=== PATIENT | female | born 1970 | race Caucasian/White ===

== ENCOUNTER → 2016-09-27 | Outpatient (CLI) | payer BC ==
[~2016-09-27] MED LIST: FLORINEF ACETA0.1 MG PO; LEVEMIR100 U/ML SC; LEVOXYL0.025 MG PO; LISINOPRIL10 MG PO; METFORMIN500 MG PO; NORCO 325 MG-7.1 TAB PO; NOVOLOG FLEX100 U/ML SC; PAMELOR 10MG10 MG PO; PROTONIX20 MG PO; ZOCOR 10MG10 MG PO
== END ==
LOC: MC.RAD 09:32
DX: Z12.31 Encounter for screening mammogram for malignant neoplasm of breast (principal)

== ENCOUNTER → 2017-11-22 | Outpatient (CLI) | payer BC | LOC: MC.RAD 08:31 | DX: Z12.31 Encounter for screening mammogram for malignant neoplasm of breast (principal) ==

== ENCOUNTER → 2018-10-24 | Outpatient (CLI) | payer BC | LOC: COL.RAD 10-19 10:30 | DX: R10.2 Pelvic and perineal pain (principal); Z90.710 Acquired absence of both cervix and uterus ==

== ENCOUNTER → 2018-11-23 | Outpatient (CLI) | payer BC | LOC: MC.RAD 09:23 | DX: Z12.31 Encounter for screening mammogram for malignant neoplasm of breast (principal) ==

== ENCOUNTER 2019-10-29 12:43 | Emergency (ER) | payer BC ==
[~2019-10-29] VITALS: Ht 162.6 cm; Wt 100.0 kg
[2019-10-29 13:28] VITALS: BP 128/80; TEMP 98.5
[2019-10-29] MEDS ORDERED: COZAAR 50MG50 MG/TAB PO (14:43)
[2019-10-29] MEDS ORDERED: DOXYCYCLINE 10100 MG PO ×3 (15:11→16:30)
[2019-10-29 15:30] VITALS: PULSE 81
== END 2019-10-29 15:30 | disposition home or self-care (01) ==
LOC: COL.ER 12:43
DX: L03.116 Cellulitis of left lower limb (principal); E11.9 Type 2 diabetes mellitus without complications; E03.9 Hypothyroidism, unspecified; K21.9 Gastro-esophageal reflux disease without esophagitis; I10 Essential (primary) hypertension; Z79.890 Hormone replacement therapy; Z79.4 Long term (current) use of insulin

== ENCOUNTER → 2019-11-30 | Outpatient (CLI) | payer BC ==
[~2019-11-30] MED LIST changes: +COZAAR 50MG50 MG/TAB PO; +DOXYCYCLINE 10100 MG PO
== END ==
LOC: MC.RAD 09:28
DX: Z12.31 Encounter for screening mammogram for malignant neoplasm of breast (principal)

== ENCOUNTER → 2021-03-16 | Outpatient (CLI) | payer OTHER | LOC: MC.RAD 08:17 | DX: Z12.31 Encounter for screening mammogram for malignant neoplasm of breast (principal) ==

== ENCOUNTER → 2022-05-06 | Outpatient (CLI) | payer OTHER | LOC: MC.RAD 04-29 09:15 | DX: Z12.31 Encounter for screening mammogram for malignant neoplasm of breast (principal) ==